=== PATIENT | female | born 1935 | race Caucasian/White ===

== ENCOUNTER 2017-03-06 07:16 | Emergency (ER) | payer MEDICARE, BC ==
[~2017-03-06] VITALS: Ht 157.5 cm; Wt 90.0 kg
[~2017-03-06 07:16] MED LIST: ASPI-99 PO; CELE200 PO; LANS30 PO; LIVA2TAB PO; LORTA5 PO; MECAP PO; PLAV75TA PO; VICT18IN
[2017-03-06 07:21] VITALS: BP 150/83; PULSE 100; RESP 18; TEMP 98.3; O2SAT 97
[2017-03-06] MEDS ORDERED: LIVA4TAB PO (07:32)
[2017-03-06] MEDS ORDERED: LANS30CA PO (07:32)
[2017-03-06] MEDS ORDERED: LOSA50TA PO (07:32)
[2017-03-06] MEDS ORDERED: CLOP75TA PO (07:32)
[2017-03-06] MEDS ORDERED: L-ME1CAP2 PO (07:33)
[2017-03-06] MEDS ORDERED: CALC600T64 PO (07:33)
[2017-03-06] MEDS ORDERED: TIZA4TAB PO (07:33)
[2017-03-06] MEDS ORDERED: VICT18IN SQ (07:33)
[2017-03-06] MEDS ORDERED: ANAS1TAB PO (07:33)
[2017-03-06] MEDS ORDERED: CELE200C PO (07:33)
--- NOTE | 2017-03-06 07:41 | PD ---
HPI Chief Complaint: Back/ Neck Pain or Injury Time Seen by Provider: 07:38 Travel History International Travel<30 days: No Contact w/Intl Traveler<30days: No Traveled to known affect area: No History of Present Illness HPI 81-year-old female patient presents to the ER today, states that she had lost balance and fell onto her left buttocks area last week, has bruising to the area , and has been to see her chiropractor and talked her primary care doctor who prescribed her a muscle relaxant but she is here because she is still having 5 out of 10 pain. She denies other issues or injuries. She states that she did hit her head last week but had no loss of consciousness and has not been having headaches, vomiting, or any other symptoms. Modifying Factors: None Associated Signs & Symptoms: Fall, left buttocks pain Risk Factors: None PFSH Past Medical History Depression: Yes Cardiac Catheterization: Yes High Cholesterol: Yes Diabetes: Yes Diminished Hearing: No GERD: Yes Neurologic: Yes (NEUROPATHY) Immunizations Current: Yes ?: Not Past Surgical History Cholecystectomy: Yes Coronary Stent: Yes Eye Surgery: Yes (CATARATCTS) Social History Alcohol Use: No Tobacco Use: No Substance Use: No Allergies-Medications (Allergen,Severity, Reaction): Coded Allergies: No Known Allergies (Unverified , 03/06/17) Reported Meds & Prescriptions Reported Meds & Active Scripts Active Reported Tizanidine (Tizanidine HCl) 4 Mg Tab 4 Mg PO TID Calcium 600 + Vit D Tablet (Calcium Carbonate/Vitamin D3) 1 Each Tablet 1 Tab PO DAILY Victoza Inj (Liraglutide Inj) 18 Mg/3 Ml Pen 1.8 Mg SQ DAILY Anastrozole 1 Mg Tab 1 Mg PO DAILY Celebrex (Celecoxib) 200 Mg Cap 200 Mg PO BID Metanx (a-Kgfjchuteifl-Retxd) 1 Cap 1 Cap PO BID Lansoprazole 30 Mg Capdr 30 Mg PO DAILY Livalo (Pitavastatin) 4 Mg Tab 4 Mg PO DAILY Clopidogrel (Clopidogrel Bisulfate) 75 Mg Tab 75 Mg PO DAILY Losartan (Losartan Potassium) 50 Mg Tab 50 Mg PO DAILY Review of Systems Except as stated in HPI: all other systems reviewed are Neg Physical Exam Narrative GENERAL: Well-developed pleasant elderly white female patient currently in mild distress. Awake and oriented 3. Ambulatory in the ER. SKIN: Focused skin assessment warm/dry. HEAD: Atraumatic. Normocephalic. EYES: Pupils equal and round. No scleral icterus. No injection or drainage. ENT: No nasal bleeding or discharge. Mucous membranes pink and moist. NECK: Trachea midline. No JVD. CARDIOVASCULAR: Regular rate and rhythm. No murmur appreciated. RESPIRATORY: No accessory muscle use. Clear to auscultation. Breath sounds equal bilaterally. GASTROINTESTINAL: Abdomen soft, non-tender, nondistended. Hepatic and splenic margins not palpable. MUSCULOSKELETAL: No obvious deformities. No clubbing. No cyanosis. No edema. Pelvis: Stable, mildly tender to palpation with ecchymosis to the left buttocks area. No point tenderness. No obvious deformities. NEUROLOGICAL: Awake and alert. No obvious cranial nerve deficits. Motor grossly within normal limits. Normal speech. PSYCHIATRIC: Appropriate mood and affect; insight and judgment normal. Data Data Last Documented VS Vital Signs Date Time Temp Pulse Resp B/P Pulse Ox O2 Delivery O2 Flow Rate FiO2 03/06/17 07:21 98.3 100 18 150/83 97 Orders Pelvis, Ap Only (Routine) (03/06/17 07:38) Acetamin-Hydrocod 325-5 Mg ([place] 5-325 (03/06/17 08:15) MDM Medical Decision Making Medical Screen Exam Complete: Yes Emergency Medical Condition: Yes Medical Record Reviewed: Yes Interpretation(s) Last 24 hours Impressions Pelvis X-Ray 03/06/17 0704 Signed Impressions: Service Date/Time: Monday, March 06, 2017 07:46 - CONCLUSION: Negative trauma study. Edvin Moore MD Differential Diagnosis Buttocks contusion versus pelvic fractures Narrative Course X-ray did not show any signs of acute fractures. At this point, my plan would be to release the patient with follow-up with primary care physician. It appears that she has a back contusion. Return for any worsening in pain or new symptoms as needed. The plan has been discussed with the patient and she states understanding. She is requesting stronger pain medication and Lortab was given. However, I have given her fall precautions and have warned her that this may put her at risk for falls. She will need help getting up and to the bathroom. Patient states understanding. Diagnosis Primary Impression: Contusion of buttock Med/Other Pt SpecificInfo: Prescription(s) given Scripts Hydrocodone-Acetaminophen (Lortab)5-325 Mg Tab1 Tab PO Q6H PRN (PAIN) #15 TAB Ref 0 Prov:Sam Lomax MD 03/06/17 Disposition: 01 DISCHARGE HOME Condition: Stable Sam Lomax MD Mar 06, 2017 07:40
--- NOTE | 2017-03-06 07:59 | RADRPT ---
EXAM DATE/TIME: 03/06/2017 07:46 [facility] COMPARISON: No previous studies available for comparison. INDICATIONS : Fall. Pelvic pain. MEDICAL HISTORY : None. SURGICAL HISTORY : None. ENCOUNTER: Initial ACUITY: 1 day PAIN SCORE: 8/10 LOCATION: Bilateral pelvis FINDINGS: A single frontal view of the pelvis demonstrates no evidence of fracture. The bony pelvic ring is in tact. Bony mineralization is normal. The sacrum is intact. There are mild degenerative disc changes in the lower lumbar spine. There are calcified phleboliths in the pelvis. The soft tissues are intact . CONCLUSION: Negative trauma study. Edvin Moore MD on March 06, 2017 at 7:57 Board Certified Radiologist. This report was verified electronically.
[2017-03-06] MEDS ORDERED: ACETAMINOPHEN/HYDROcodone 325 MG/5 MG TAB PO ONE (08:15)
[2017-03-06] MEDS ORDERED: HYDR-3533 PO (08:16)
[2017-03-06 08:42] VITALS: BP 134/74; PULSE 86; RESP 18; O2SAT 97
== END 2017-03-06 08:57 | disposition home or self-care (01) ==
LOC: PHEFT 07:16
DX: S30.0XXA Contusion of lower back and pelvis, initial encounter (principal); W19.XXXA Unspecified fall, initial encounter
CPT/HCPCS: 72170; 99283

== ENCOUNTER 2017-10-29 15:36 | Emergency (ER) | payer MEDICARE, BC ==
[~2017-10-29] VITALS: Ht 157.5 cm; Wt 92.0 kg
[~2017-10-29 15:36] MED LIST changes: +ANAS1TAB PO; -ASPI-99 PO; +CALC600T64 PO; -CELE200 PO; +CELE200C PO; +CLOP75TA PO; +L-ME1CAP2 PO; -LANS30 PO; +LANS30CA PO; -LIVA2TAB PO; +LIVA4TAB PO; -LORTA5 PO; +LOSA50TA PO; -MECAP PO; +NORC5TAB PO; -PLAV75TA PO; +TIZA4TAB PO; -VICT18IN; +VICT18IN SQ
[2017-10-29 15:49] VITALS: BP 199/84; PULSE 105; RESP 16; TEMP 98.3; O2SAT 97
--- NOTE | 2017-10-29 16:08 | PD ---
HPI Chief Complaint: Fall Time Seen by Provider: 15:47 Travel History International Travel<30 days: No Contact w/Intl Traveler<30days: No Traveled to known affect area: No History of Present Illness HPI The patient is a 82-year-old female who presents to the emergency department after an accidental fall. The patient was walking earlier today, fell backwards, striking the posterior aspect of her head. There was no loss of consciousness. She denies any headache, does note a hematoma to the head. She is on Coumadin, however, cannot recall the reason she is on Coumadin. She states they started it 5 years ago after knee surgery, she denies any history of atrial fibrillation, known cardiomyopathy, or previous pulmonary embolism/ DVT. She denies any neck pain, chest pain, shortness of breath, or back pain. She did fall several weeks ago, landing on her walker, having some mid left back pain and scapular pain at that time which has improved. She denies any injuries to the upper extremities or legs. Symptoms are moderate. She denies any nausea, vomiting, paresthesias, numbness, tingling, or focal deficits. PFSH Past Medical History Hx Anticoagulant Therapy: Yes (coumadin) Arthritis: Yes Depression: Yes Cardiac Catheterization: Yes Cardiovascular Problems: Yes (htn on meds) High Cholesterol: Yes Coronary Artery Disease: Yes Diabetes: Yes Patient Takes Glucophage: No Diminished Hearing: No GERD: Yes Hypertension: Yes Neurologic: Yes (NEUROPATHY) Immunizations Current: Yes Tetanus Vaccination: Unknown Influenza Vaccination: Yes ?: Not Menopausal: Yes Past Surgical History Cholecystectomy: Yes Coronary Stent: Yes (x1) Eye Surgery: Yes (CATARATCTS) Gynecologic Surgery: Yes (right breast lumpectomy ) Joint Replacement: Yes (left knee) Social History Alcohol Use: No Tobacco Use: No Substance Use: No Allergies-Medications (Allergen,Severity, Reaction): Coded Allergies: No Known Allergies (Verified Allergy, Unknown, 10/29/17) Reported Meds & Prescriptions Reported Meds & Active Scripts Active Reported Coumadin (Warfarin) 7.5 Mg Tab 7.5 Mg PO DAILY Calcium 600 + Vit D Tablet (Calcium Carbonate/Vitamin D3) 1 Each Tablet 1 Tab PO DAILY Victoza Inj (Liraglutide Inj) 18 Mg/3 Ml Pen 1.8 Mg SQ DAILY Anastrozole 1 Mg Tab 1 Mg PO DAILY Celebrex (Celecoxib) 200 Mg Cap 200 Mg PO BID PRN Metanx (k-Pfyiytldsoiy-Jevhc) 1 Cap 1 Cap PO HS Lansoprazole 30 Mg Capdr 30 Mg PO DAILY Livalo (Pitavastatin) 4 Mg Tab 4 Mg PO DAILY Losartan (Losartan Potassium) 50 Mg Tab 50 Mg PO DAILY Review of Systems Except as stated in HPI: all other systems reviewed are Neg Eyes: No: Visual changes HENT: No: Headaches, Neck Pain Cardiovascular: No: Chest Pain or Discomfort Respiratory: No: Shortness of Breath Gastrointestinal: No: Nausea, Vomiting, Abdominal Pain Musculoskeletal: Positive: Pain (Left mid thoracic scapular pain 1 week ago which has resolved) Neurologic: No: Dizziness, Focal Abnormalities, Headache, Change in Mentation, Paresthesia, Sensory Disturbance Physical Exam Narrative GENERAL: Awake, alert, pleasant 82-year-old female who appears her stated age and is in no acute respiratory distress. SKIN: Focused skin assessment warm/dry. HEAD: Hematoma of the occipital area, but no visible abrasion, laceration, or bleeding. EYES: Pupils equal and round. Pupils are 3 mm bilateral and reactive. EOMs are intact. ENT: No nasal bleeding or discharge. Mucous membranes pink and moist. NECK: Trachea midline. No JVD. No tenderness of the cervical vertebrae. CARDIOVASCULAR: Regular rate and rhythm. No murmur appreciated. RESPIRATORY: No accessory muscle use. Clear to auscultation. Breath sounds equal bilaterally. GASTROINTESTINAL: Abdomen soft, non-tender, nondistended. Well-healed right upper quadrant scar. Back: No tenderness over the thoracic or lumbar vertebrae. Old appearing contusion over the mid left thoracic region. MUSCULOSKELETAL: No obvious deformities. No clubbing. No cyanosis. No edema. NEUROLOGICAL: Awake and alert. No obvious cranial nerve deficits. Motor grossly within normal limits. Normal speech. Nonfocal. Oriented 4. Follows commands without difficulty. PSYCHIATRIC: Appropriate mood and affect; insight and judgment normal. Data Data Last Documented VS Vital Signs Date Time Temp Pulse Resp B/P (MAP) Pulse Ox O2 Delivery O2 Flow Rate FiO2 10/29/17 15:52 104 16 97 Room Air 10/29/17 15:49 98.3 199/84 (122) Orders Orders Ct Brain W/O Iv Contrast(Rout) (10/29/17 ) Ct Cerv Spine W/O Contrast (10/29/17 ) Chest, Single Ap (10/29/17 ) Ed Discharge Order (10/29/17 17:27) [facility] Medical Decision Making Medical Screen Exam Complete: Yes Emergency Medical Condition: Yes Medical Record Reviewed: Yes Interpretation(s) Last Impressions Head CT 10/29/17 0000 Signed Impressions: Service Date/Time: Sunday, October 29, 2017 16:12 - CONCLUSION: 1. No acute findings in the brain. Hero Lujan MD Cervical Spine CT 10/29/17 0000 Signed Impressions: Service Date/Time: Sunday, October 29, 2017 16:12 - CONCLUSION: 1. No evidence of compression deformity or spondylolisthesis. 2. Moderate degenerative changes C5-7. Hero Lujan MD Chest x-ray reveals no obvious injury Differential Diagnosis Differential diagnosis includes closed head injury, skull fracture, intracranial hemorrhage, subdural hemorrhage, subarachnoid hemorrhage, Coumadin toxicity, cervical fracture, rib fracture, contusion, hematoma. Narrative Course CT of the cervical spine and brain were obtained. Chest x-ray was obtained. Chest x-ray reveals no obvious injury. CT the brain is negative for hemorrhage. CT the cervical spine reveals degenerative changes but no acute fracture. The patient is advised to take Tylenol as needed for pain and a follow-up with her primary physician. She is also advised to return if she has any acute focal deficits or progressing headache. Diagnosis Primary Impression: Closed head injury Qualified Codes: S09.90XA - Unspecified injury of head, initial encounter Patient Instructions: General Instructions Additional Instructions: Please provide the patient a copy of her CT results at discharge. Follow-up with her primary physician. Return for significant headache or any acute focal neurologic deficits. Tylenol as needed for pain. Med/Other Pt SpecificInfo: No Change to Meds Disposition: 01 DISCHARGE HOME Condition: Stable German Horowitz MD Oct 29, 2017 16:08
[2017-10-29] MEDS ORDERED: COUM7.5T PO (16:12)
--- NOTE | 2017-10-29 16:39 | RADRPT ---
EXAM DATE/TIME: 10/29/2017 16:12 [facility] COMPARISON: CT BRAIN W/O CONTRAST, July 29, 2012, 21:44. INDICATIONS : Trauma. Fall. Hit head. RADIATION DOSE: 61.33 CTDIvol (mGy) MEDICAL HISTORY : Gastroesophageal reflux disease. Cardiovascular disease Carcinoma, breast.Hypertension. Diabetes. SURGICAL HISTORY : Cholecystectomy. Coronary artery stent.Right breast lumpectomy. ENCOUNTER: Initial ACUITY: 1 day PAIN SCALE: 2/10 LOCATION: cranial TECHNIQUE: Multiple contiguous axial images were obtained of the head. Using automated exposure control and adj ustment of the mA and/or kV according to patient size, radiation dose was kept as low as reasonably a chievable to obtain optimal diagnostic quality images. DICOM format image data is available electro nically for review and comparison. FINDINGS: CEREBRUM: The ventricles are normal for age. No evidence of midline shift, mass lesion, hemorrhage or acute in farction. No extra-axial fluid collections are seen. POSTERIOR FOSSA: The cerebellum and brainstem are intact. The 4th ventricle is midline. The cerebellopontine angle i s unremarkable. EXTRACRANIAL: The visualized portion of the orbits is intact. SKULL: Hyperostosis of the calvarium. No evidence of skull fracture. CONCLUSION: 1. No acute findings in the brain. Hero Lujan MD on October 29, 2017 at 16:36 Board Certified Radiologist. This report was verified electronically.
--- NOTE | 2017-10-29 16:42 | RADRPT ---
EXAM DATE/TIME: 10/29/2017 16:12 [facility] COMPARISON: No previous studies available for comparison. INDICATIONS : Trauma. Fall. Hit head. RADIATION DOSE: 25.92 CTDIvol (mGy) MEDICAL HISTORY : Gastroesophageal reflux disease. Cardiovascular disease Carcinoma, breast.Diabetes. Hypertension. SURGICAL HISTORY : Cholecystectomy. Coronary artery stent.Right breast lumpectomy. ENCOUNTER: Initial ACUITY: 1 day PAIN SCALE: 0/10 LOCATION: Bilateral neck TECHNIQUE: Volumetric scanning of the cervical spine was performed. Multiplanar reconstructions in the sagittal, coronal and oblique axial planes were performed. Using automated exposure control and adjustment o f the mA and/or kV according to patient size, radiation dose was kept as low as reasonably achievable to obtain optimal diagnostic quality images. DICOM format image data is available electronically f or review and comparison. FINDINGS: There is straightening of the cervical lordosis. Vertebral body height is maintained. Diffuse osteo penia. Moderate narrowing of the C5-C7 interspaces with mild anterior posterior osteophyte formation . The posterior elements are in normal alignment without evidence of locked or perched facets. The atlantoaxial alignment is maintained. C2-C3: No fracture seen. The neural foramina are patent. C3-C4: No fracture seen. The neural foramina are patent. C4-C5: No fracture seen. Moderate severity bilateral neural foraminal stenosis. C5-C6: No fracture seen. Mild bilateral neural foraminal stenosis. C6-C7: No fracture seen. The neural foramina are patent. C7-T1: No fracture seen. The neural foramina are patent. CONCLUSION: 1. No evidence of compression deformity or spondylolisthesis. 2. Moderate degenerative changes C5-7. Hero Lujan MD on October 29, 2017 at 16:37 Board Certified Radiologist. This report was verified electronically.
--- NOTE | 2017-10-29 17:44 | RADRPT ---
EXAM DATE/TIME: 10/29/2017 16:38 [facility] COMPARISON: No previous studies available for comparison. INDICATIONS : Syncope, fall today. MEDICAL HISTORY : Hypertension. SURGICAL HISTORY : Mastectomy, right. ENCOUNTER: Initial ACUITY: 1 day PAIN SCORE: 0/10 LOCATION: Bilateral chest FINDINGS: A single view of the chest demonstrates the lungs to be symmetrically aerated without evidence of mas s, infiltrate or effusion. No evidence of pneumothorax. A The cardiomediastinal contours are unrema rkable. Osseous structures are intact. CONCLUSION: The lungs are clear. Hero Lujan MD on October 29, 2017 at 17:42 Board Certified Radiologist. This report was verified electronically.
== END 2017-10-29 17:48 | disposition home or self-care (01) ==
LOC: PHEFT 15:36
DX: S09.90XA Unspecified injury of head, initial encounter (principal); M50.322 Other cervical disc degeneration at C5-C6 level; M50.323 Other cervical disc degeneration at C6-C7 level; M19.90 Unspecified osteoarthritis, unspecified site; I10 Essential (primary) hypertension; E78.00 Pure hypercholesterolemia, unspecified; I25.10 Atherosclerotic heart disease of native coronary artery without angina pectoris; E11.9 Type 2 diabetes mellitus without complications; W18.30XA Fall on same level, unspecified, initial encounter
CPT/HCPCS: 70450; 71045; 72125; 99284